=== PATIENT | female | born 1965 | race Caucasian/White ===

== ENCOUNTER 2017-03-07 23:59 | Emergency (ER) | payer OTHER ==
--- NOTE | ~2017-03-07 | CR63 ---
[facility] A Service of [facility] & [facility] RADIOLOGY TEXT RESULTS PATIENT: LOCO DIETZ LOCATION: [facility] : 65 UNIT #: [id number] AGE: [address]: DARÍO DRAPER APRN SEX: F ORDER DR: [id number] [facility] [address]. [place], [place] [address] [id number] E MR#: [id number] Acc #: [id number] NAME: LOCO DIETZ : 1965 SEX: F STUDY DATE/TIME: 03/08/2017 0:47 UNIT: [facility] ROOM: STUDY DESCRIPTION: CR Chest 2 View Attending Physician: Darío Draper Aprn Ordering Physician: Darío Draper Aprn Primary Care Physician: Bon Burnett M.D. MEDICAL IMAGING REPORT This report is preliminary unless electronic signature is present EXAM PA and lateral chest INDICATIONS Cough, left-sided chest pain for 9 days. 03/08 COMPARISON 02/28/2017. FINDINGS A portable view of the chest was obtained. The heart size and vascularity are normal and the lungs are clear and the bones are unremarkable. IMPRESSION No active disease. Dictated by... Tristan Powers M.D. THIS IS AN ELECTRONICALLY VERIFIED REPORT Tristan Powers M.D. at 03/08/2017 5:05 AM JEROD/zan TD: 03/08/2017 02:26 JOB #: [id number] MEDICAL IMAGING REPORT Page 1 of 1 COPY
[~2017-03-07 23:59] MED LIST: ADULT TUSS100 MG/5 M PO; ALBUTEROL 0.5ML INH; ALBUTEROL MININEB NEB; ALBUTEROL17 GM; ALBUTEROL17 GM INH; ALDACTAZIDE PO; ASPIRIN PO; ATROVENT HFA12.9 G1 INH; BACTRIM DS TABL1 TAB PO; BENTYL10 M1 PO; BENZONATATE PO; CAPOZIDE PO; FAMOTIDINE PO; HCTZ PO; HUMIBID-LA600 MG PO; HYDRALAZINE HCL10 MG PO; HYDRALAZINE HCL25 MG PO; HYDROCHLOROTHIA25 MG PO; KEFLEX PO; LEVAQUIN750 M1 PO; LIPITOR PO; LOPRESSOR PO; NORVASC10 MG PO; OMEPRAZOLE40 M1 PO; PHENERGAN PO; PHENTERMINE PO; PREDNISONE PO; PRILOSEC PO; PRILOSEC40 MG PO; PROVENTIL; ROBITUSSIN-DM120 ML PO; SINGULAIR PO; SINGULAIR4 MG PO; TECTURNA PO; TYL325 PO; VENTOLIN5 MG/ML INH; VICODIN 5/500 T1 TAB PO; ZESTORETIC 10/11 TAB PO; ZITHROMAX PO; ZYRTEC10 M1 PO; ZYRTEC10 M2 PO
== END 2017-03-08 03:00 | disposition home or self-care (01) ==
LOC: CED 23:59
DX: J06.9 Acute upper respiratory infection, unspecified (principal); J44.9 Chronic obstructive pulmonary disease, unspecified; K21.9 Gastro-esophageal reflux disease without esophagitis; I10 Essential (primary) hypertension; Z98.51 Tubal ligation status; F17.210 Nicotine dependence, cigarettes, uncomplicated; Z88.0 Allergy status to penicillin; Z91.030 Bee allergy status
CPT/HCPCS: 71020; 94640; 99283

== ENCOUNTER 2017-03-26 06:13 | Emergency (ER) | payer OTHER ==
--- NOTE | ~2017-03-26 | US67 ---
[facility] A Service of [facility] & [facility] RADIOLOGY TEXT RESULTS PATIENT: LOCO DIETZ LOCATION: [facility] : 65 UNIT #: [id number] AGE: [address]: Ron Villa MD SEX: F ORDER DR: [id number] [facility] [address] [place], [place] [address] [id number] E MR#: [id number] Acc #: [id number] NAME: LOCO DIETZ : 1965 SEX: F STUDY DATE/TIME: 03/26/2017 7:23 UNIT: [facility] ROOM: STUDY DESCRIPTION: Gallbladder Attending Physician: Ron Villa M.D. Ordering Physician: Ron Villa M.D. Primary Care Physician: Bon Burnett M.D. MEDICAL IMAGING REPORT This report is preliminary unless electronic signature is present EXAM Gallbladder ultrasound 03/26/2017 HISTORY Gallbladder pain for 4 or 5 hours, hypertension. No relevant surgery history. Real-time ultrasonography of the right upper quadrant performed. COMPARISON: 12/02/2016. FINDINGS Visualized portions of pancreas unremarkable but much of the pancreas is obscured by bowel gas artifact. The liver is normal in contour. Normal echotexture. No focal parenchymal abnormality. Portal vein patent with normal direction of flow. The liver measures about 15.4 cm in craniocaudal extent. Right kidney measures 9.05 cm in greatest length. No hydronephrosis or nephrolithiasis seen. No perinephric fluid collection. No cystic or solid mass lesion suggested. The gallbladder is not pathologically dilated. Measures about 3.6 cm in diameter. Multiple shadowing gallstones as on prior examination. Gallstones are seen in the region of gallbladder neck. There is no intra or extrahepatic biliary ductal dilatation. Common duct measures 4.4 mm in diameter. No pericholecystic fluid. Gallbladder wall measures within normal limits at approximately 2.4 mm. IMPRESSION 1. Multiple shadowing gallstones. No clear sonographic indication of acute cholecystitis. There is no pathologic dilatation of gallbladder. No gallbladder wall thickening or pericholecystic fluid. Note is made of at least 1 gallstone in region of the [facility]. [facility] A Service of [facility] & [facility] RADIOLOGY TEXT RESULTS PATIENT: LOCO DIETZ LOCATION: [facility] : 65 UNIT #: [id number] AGE: [address]: Ron Villa MD SEX: F ORDER DR: gallbladder neck. 2. No biliary ductal dilatation. 3. The liver appears normal. 4. Right kidney normal. 5. Pancreas largely obscured by bowel gas artifact. If there is clinical concern regarding pancreas, it could be further evaluated with CT. Dictated by... Karan Sheldon M.D. THIS IS AN ELECTRONICALLY VERIFIED REPORT Karan Sheldon M.D. at 03/26/2017 3:50 PM Barertt TD: 03/26/2017 09:01 JOB #: [id number] MEDICAL IMAGING REPORT Page 1 of 1 COPY
[2017-03-26 06:48] LABS: URINE SOURCE CLEAN CATCH
[2017-03-26 06:56] LABS: BASOPHIL# 0.1 X10e3 (0-0.3); BASOPHIL% 0.6 % (0-2.5); EOSINOPHIL# 0.4 X10e3 (0-0.7); EOSINOPHIL% 4.1 % (0.0-7.0); HEMATOCRIT 42.6 % (35.0-45.0); LYMPHOCYTE# 1.9 X10e3 (1.0-3.5); LYMPHOCYTE% 20.3 % (17.0-45.0); MEAN CELL VOLUME 80.8 FL (83-96); MEAN CORPUSCULAR HEMOGLOBIN 26.6 PG (28-34); MEAN CORPUSCULAR HGB CONC 32.9 g/dL (30-36); MEAN PLATELET VOLUME 8.5 FL (6.5-11.5); MONOCYTE# 0.6 X10e3 (0-1.0); MONOCYTE% 6.8 % (3.0-12.0); NEUTROPHIL# 6.2 X10e3 (1.5-7.1); NEUTROPHIL% 68.2 % (40-75); PLATELET COUNT 275 X10e3 (140-420); RED BLOOD COUNT 5.28 X10e (3.90-5.30); RED CELL DISTRIBUTION WIDTH 15.2 % (11.0-15.5); WHITE BLOOD COUNT 9.1 X10e3 (4.0-10.5)
[2017-03-26 06:57] LABS: URINE APPEARANCE CLOUDY; URINE BILIRUBIN NEG (NEG); URINE BLOOD NEG (NEG); URINE COLOR YELLOW; URINE GLUCOSE NEG (NEG); URINE KETONE NEG (NEG); URINE LEUKOCYTE ESTERASE NEG (NEG); URINE NITRATE NEG (NEG); URINE PH 6.5 (5-8); URINE PROTEIN NEG (NEG); URINE SPECIFIC GRAVITY 1.016 (1.003-1.035)
[2017-03-26 06:59] LABS: DIFF IND NO
[2017-03-26 07:01] LABS: CULTURE INDICATED? NO
[2017-03-26 07:24] LABS: ALBUMIN SERUM 3.6 g/dL (3.5-5.0); BILIRUBIN, DIRECT 0.1 mg/dL (0.0-0.2); BILIRUBIN,INDIRECT 0.3 mg/dL (0.0-0.9); BILIRUBIN,TOTAL 0.4 mg/dL (0.2-2.0); BUN/CREATININE RATIO 21.25; CALCIUM SERUM 9.1 mg/dL (8.4-10.2); CREATININE SERUM 0.8 mg/dL (0.6-1.4); GLOM FILT RATE Estimated 85.4 mL/min (>60); PROTEIN TOTAL SERUM 6.7 g/dL (6.0-8.3)
== END 2017-03-26 09:01 | disposition home or self-care (01) ==
LOC: CED 06:13
PROVIDERS: Emergency Medicine
DX: K80.50 Calculus of bile duct without cholangitis or cholecystitis without obstruction (principal); Z88.0 Allergy status to penicillin; Z88.8 Allergy status to other drugs, medicaments and biological substances; Z88.5 Allergy status to narcotic agent; Z91.030 Bee allergy status; Z79.899 Other long term (current) drug therapy
CPT/HCPCS: 36415; 76705; 80048; 80076; 81003; 83690; 85025; 96361; 96374; 96375; 99284; J1170; J2405

== ENCOUNTER 2017-04-04 14:15 | Emergency (ER) | payer OTHER ==
[2017-04-04 15:19] LABS: BASOPHIL# 0.1 X10e3 (0-0.3); BASOPHIL% 0.9 % (0-2.5); EOSINOPHIL# 0.2 X10e3 (0-0.7); HEMATOCRIT 46.1 % (35.0-45.0); HEMOGLOBIN 14.9 gm/dL (12.0-16.0); LYMPHOCYTE# 1.7 X10e3 (1.0-3.5); LYMPHOCYTE% 16.9 % (17.0-45.0); MEAN CELL VOLUME 80.8 FL (83-96); MEAN CORPUSCULAR HEMOGLOBIN 26.1 PG (28-34); MEAN CORPUSCULAR HGB CONC 32.3 g/dL (30-36); MEAN PLATELET VOLUME 8.8 FL (6.5-11.5); MONOCYTE# 0.6 X10e3 (0-1.0); MONOCYTE% 6.2 % (3.0-12.0); NEUTROPHIL# 7.3 X10e3 (1.5-7.1); PLATELET COUNT 290 X10e3 (140-420); RED CELL DISTRIBUTION WIDTH 15.9 % (11.0-15.5); WHITE BLOOD COUNT 9.9 X10e3 (4.0-10.5)
[2017-04-04 15:24] LABS: DIFF IND NO
[2017-04-04 15:42] LABS: ALBUMIN SERUM 3.9 g/dL (3.5-5.0); BILIRUBIN,TOTAL 0.4 mg/dL (0.2-2.0); BUN/CREATININE RATIO 8.88; CALCIUM SERUM 9.5 mg/dL (8.4-10.2); CREATININE SERUM 0.9 mg/dL (0.6-1.4); GLOM FILT RATE Estimated 74.1 mL/min (>60); POTASSIUM 3.8 mmol/L (3.5-5.1)
== END 2017-04-04 15:55 | disposition left against medical advice (07) ==
LOC: CED 14:15
PROVIDERS: Emergency Medicine
DX: Z53.21 Procedure and treatment not carried out due to patient leaving prior to being seen by health care provider (principal)
CPT/HCPCS: 80053; 85025

== ENCOUNTER 2017-05-23 15:24 | Emergency (ER) | payer OTHER ==
--- NOTE | ~2017-05-23 | CR72 ---
[facility] A Service of [facility] RADIOLOGY TEXT RESULTS PATIENT: LOCO DIETZ LOCATION: [facility] : 65 UNIT #: [id number] AGE: [address]: Merari Esteban MD SEX: F ORDER DR: [id number] [facility] [address] [place], [place] [address] [id number] E MR#: [id number] Acc #: [id number] NAME: LOCO DIETZ : 1965 SEX: F STUDY DATE/TIME: 05/23/2017 18:39 UNIT: [facility] ROOM: STUDY DESCRIPTION: CR Chest Single View Portable Attending Physician: Merari Esteban M.D. Ordering Physician: Merari Esteban M.D. Primary Care Physician: Bon Burnett M.D. MEDICAL IMAGING REPORT This report is preliminary unless electronic signature is present EXAM Frontal chest, 05/23/2017. INDICATIONS 51-year-old female with shortness of air, feels like food getting stuck in the throat symptoms 5 days. Hypertension. COPD, tobacco abuse 30 years. TECHNIQUE Frontal chest was performed. COMPARISONS 03/08/2017 FINDINGS Cardiac silhouette is within normal limits. The vascularity is normal. Chronic interstitial changes are present in both lungs with probable fibrosis and scarring in the lung bases similar to the prior examination. No pneumothorax. IMPRESSION 1. Pulmonary hyperinflation and chronic lung changes. No significant change. Dictated by... Juan Carlos Cross M.D. THIS IS AN ELECTRONICALLY VERIFIED REPORT Juan Carlos Cross M.D. at 05/23/2017 11:50 PM Carlos TD: 05/23/2017 22:26 JOB #: [id number] [facility] A Service [facility] RADIOLOGY TEXT RESULTS PATIENT: LOCO DIETZ LOCATION: [facility] : 65 UNIT #: [id number] AGE: [address]: Merari Esteban MD SEX: F ORDER DR: MEDICAL IMAGING REPORT Page 1 of 1 COPY
[2017-05-23 17:57] LABS: BASOPHIL# 0.1 X10e3 (0-0.3); EOSINOPHIL# 0.1 X10e3 (0-0.7); EOSINOPHIL% 1.8 % (0.0-7.0); HEMATOCRIT 45.2 % (35.0-45.0); HEMOGLOBIN 14.7 gm/dL (12.0-16.0); LYMPHOCYTE# 1.9 X10e3 (1.0-3.5); LYMPHOCYTE% 23.9 % (17.0-45.0); MEAN CORPUSCULAR HEMOGLOBIN 26.3 PG (28-34); MEAN CORPUSCULAR HGB CONC 32.4 g/dL (30-36); MONOCYTE# 0.6 X10e3 (0-1.0); MONOCYTE% 7.9 % (3.0-12.0); NEUTROPHIL# 5.3 X10e3 (1.5-7.1); NEUTROPHIL% 65.4 % (40-75); PLATELET COUNT 241 X10e3 (140-420); RED BLOOD COUNT 5.58 X10e (3.90-5.30); RED CELL DISTRIBUTION WIDTH 16.4 % (11.0-15.5); WHITE BLOOD COUNT 8.1 X10e3 (4.0-10.5)
[2017-05-23 17:59] LABS: DIFF IND NO
[2017-05-23 18:17] LABS: ALBUMIN SERUM 3.9 g/dL (3.5-5.0); ALKALINE PHOSPHATASE 91 U/L (32-92); ALT (SGPT) 8 U/L (10-40); AST (SGOT) 14 U/L (10-42); BILIRUBIN,TOTAL 0.5 mg/dL (0.2-2.0); BLOOD UREA NITROGEN 7 mg/dL (9-23); BUN/CREATININE RATIO 8.75; CARBON DIOXIDE 28 mmol/L (22-31); CHLORIDE 104 mmol/L (100-111); CREATININE SERUM 0.8 mg/dL (0.6-1.4); GLOM FILT RATE Estimated 85.4 mL/min (>60); GLUCOSE FASTING 77 mg/dL (70-110); LIPASE 18 U/L (22-51); POTASSIUM 3.9 mmol/L (3.5-5.1); SODIUM 138 mmol/L (135-145)
[2017-05-23 18:18] LABS: BILIRUBIN, DIRECT <0.1 mg/dL (0.0-0.2); BILIRUBIN,INDIRECT 0.4 mg/dL (0.0-0.9)
[2017-05-23 18:36] LABS: URINE SOURCE CLEAN CATCH
[2017-05-23 18:42] LABS: URINE APPEARANCE CLEAR; URINE BILIRUBIN NEG (NEG); URINE BLOOD NEG (NEG); URINE COLOR YELLOW; URINE GLUCOSE NEG (NEG); URINE KETONE NEG (NEG); URINE LEUKOCYTE ESTERASE NEG (NEG); URINE NITRATE NEG (NEG); URINE PH 6.5 (5-8); URINE PROTEIN NEG (NEG); URINE SPECIFIC GRAVITY 1.007 (1.003-1.035); URINE UROBILINOGEN 0.2 MG/DL (NEG)
[2017-05-23 18:46] LABS: CULTURE INDICATED? NO
== END 2017-05-23 20:10 | disposition home or self-care (01) ==
LOC: CED 15:24
DX: K21.9 Gastro-esophageal reflux disease without esophagitis (principal); K22.2 Esophageal obstruction; I10 Essential (primary) hypertension; J44.9 Chronic obstructive pulmonary disease, unspecified; F17.210 Nicotine dependence, cigarettes, uncomplicated; Z98.51 Tubal ligation status; Z88.0 Allergy status to penicillin; Z88.8 Allergy status to other drugs, medicaments and biological substances; Z91.030 Bee allergy status
CPT/HCPCS: 36415; 71010; 80048; 80076; 81003; 83690; 85025; 99284; J0500

== ENCOUNTER 2017-06-26 18:48 | Observation (INO) | payer OTHER ==
[~2017-06-26] VITALS: Ht 160 cm; Wt 66.3 kg
--- NOTE | ~2017-06-26 | DS ---
Unit #: [id number] #: [id number] Patient: LOCO DIETZ [id number] [address] [place], [place] [address] [id number] I MR#: [id number] NAME: LOCO DIETZ ROOM: 556 Age: 51 Sex: F Admission Date: 06/27/2017 : 1965 Discharge Date: 06/29/2017 Attending Physician: Talita Turner M.D. Primary Care Physician: Broderick Neal M.D. DISCHARGE SUMMARY PRINCIPAL DISCHARGE DIAGNOSES 1. Atypical chest pain with negative Cardiolite. 2. Dysphagia. 3. Chronic obstructive pulmonary disease. 4. Tobacco use. 5. Hypertension. PROCEDURES EGD with biopsy and dilation on 06/28/17. CONSULTANTS 1. Dr. Tommy Bennett. 2. [facility]. REASON FOR HOSPITALIZATION The patient is a 51-year-old white female, with history of COPD, hypertension, GE reflux disease, history of esophageal stricture and dilation, admitted with nausea, vomiting, weight loss, dysphagia and anterior chest pain. In the ER she was afebrile. Vital signs were stable. Room air O2 sat was 98%. CBC was normal. BMP was normal. Urinalysis normal. Cardiac enzymes normal. D-dimer 271. The patient was admitted. HOSPITAL COURSE The patient was admitted. Cardiology was consulted. She was placed on a telemetry bed. GI was consulted, as well. IV Protonix was started. The patient underwent stress Cardiolite on the , which was within normal limits. She then underwent EGD the following day with findings showing duodenitis, gastritis, hiatal hernia. Biopsies were obtained, esophagus was dilated. The patient is having no further chest pain. No trouble swallowing. Okay to be discharged by cardiology and GI. Patient on omeprazole at home, which will be resumed. She is on a regular diet. MEDICATIONS 1. Ventolin inhaler p.r.n. 2. Zyrtec 10 mg daily. 3. Norvasc 10 mg daily. 4. Singulair 10 mg daily. 5. Lorcet 5/325 t.i.d. p.r.n. pain. 6. Omeprazole 40 mg daily. FOLLOW-UP She is to follow up with Dr. Burnett in 1 week. Unit #: [id number] #: [id number] Patient: LOCO DIETZ Dictated by... Migue Easley/olivia TD: 07/01/2017 10:11 JOB #: [id number] DISCHARGE SUMMARY Page 1 of 1 X Jaret Russo MD X DISCHARGE SUMMARY
--- NOTE | ~2017-06-26 | TH ---
Unit #: [id number] #: [id number] Patient: LOCO DIETZ [id number] [facility]. [place], [place] [address] [id number] I MR#: [id number] NAME: LOCO DIETZ : 1965 SEX: F STUDY DATE/TIME: 06/27/2017 UNIT: [id number] ROOM: 556 STUDY DESCRIPTION: NUCLEAR STUDY Attending Physician: Talita Turner M.D. Primary Care Physician: Broderick Neal M.D. CARDIOLOGY REPORT INDICATION Chest pain. SUMMARY The patient exercised under Jon protocol to maximal effort. Heart rate increased from 81 to 146. The rest and stress ECG demonstrated no diagnostic ST shifts but there was 0.[address] depression in leads 2, 3, AVF at rest. The patient completed two stage of the Jon protocol, then modified stage 3 and stage 4 for approximately 2.5 minutes today. A total of 8 minutes and 30 seconds was spent on the treadmill. There was no chest pain or chest tightness, and there was no shoulder pain but there was typical shortness of breath. Technetium 99 Cardiolite 11.28 and 31.0 mCi was injected at rest and stress respectively. Perfusion images demonstrated intestinal artifact mainly at rest, less with stress. There is breast attenuation artifact both at rest and stress, but otherwise normal perfusion throughout the myocardium at both rest and stress. Gated perfusion wall motion analysis demonstrates normal wall motion throughout the myocardium. Summed stress score is 3. Summed difference score is 3, mainly related to border detection at the base. End-diastolic volume 75 mL, ejection fraction is greater than 65% IMPRESSION 1. Normal study with no evidence of ischemia or infarction. Moderate deconditioning based on the patient's age. 2. Normal heart rate and blood pressure responses. No change in therapy. Dictated by... Augie Eastman M.D. FLORIDALMA/zach TD: 06/28/2017 07:56 JOB #: [id number] Unit #: [id number] #: [id number] Patient: LOCO DIETZ CARDIOLOGY REPORT Page 1 of 1 X Augie Eastman MD CARDIOLOGY REPORT
--- NOTE | ~2017-06-26 | EKG ---
PATIENT: LOCO DIETZ UNIT #: [id number] Ventricular Rate: 75 BPM Atrial Rate: 75 BPM P-R Interval: 130 ms QRS Duration: 90 ms Q-T Interval: 378 ms QTC Calculation(Bezet): 422 ms P Gentry: 66 degrees Calculated R Gentry: 57 degrees Calculated T Gentry: 43 degrees Diagnosis Line: Normal sinus rhythm Diagnosis Line: Normal ECG Diagnosis Line: No previous ECGs available Diagnosis Line: Confirmed by SALUD KNUTSON MD ([id number]) on 06/27/2017 Diagnosis Line: 7:17:27 PM INTERPRETING MD: EAMON PICKERING
--- NOTE | ~2017-06-26 | A ---
[facility] Nutrition Therapy DATE: 06/28/17 Patient: LOCO DIETZ Physician: ERENDIRA Address: [address] [place] [address] Room/Bed: [address] [place] [address], Zip: [place] [address] Admit Date: 06/27/17 Date of : [birth year] Height: 5 3 Weight: 147 66.9 NUTRITIONAL ASSESSMENT: REASON: PT SEEN FOR DX PT IS 51 Y.O. FEMALE ADMITTED FOR DYSPHAGIA, CP PMH: HTN, ASTHMA, COPD, GERD, DYSPHAGIA, HLD, BRONCHITIS, HX OF ESOPHAGEAL STRICTURES W/DILATION Anthropometrics: 5'3", WT: 146# (66 KG), BMI: 25.9 Labs: BUN: 8, ALB: 3.3, AST: 9, ALT: 7, LDL: 144 Meds: PROTONIX, D5%, NACL I/O & Bowel function: 975/800 Skin Integrity: NO KNOWN SKIN ISSUES Estimated Nutrition Needs: INCREASED NEEDS 2' DECREASED PO INTAKE, WEIGHT LOSS NOTED Assessment: CHART REVIEWED AND EVENTS NOTED. PT SEEN FOR DX. PT REPORTS DECREASED PO INTAKE AND APPETITE PAST 3-4 MONTHS D/T DIFFICULTY SWALLOWING SOLIDS, PT ADDS "FOOD GETS STUCK", ALSO NOTING N/V/D. PT REPORTS LOSING WEIGHT PAST YEAR/NOTES UBW IS ~189#-40# SEVERE WEIGHT LOSS NOTED. PT ADDS LOSING ~20# PAST 3 MONTHS S/P GALLBADDER REMOVAL. PT CURRENTLY NPO 2' EGD PROCEDURE TODAY. PLANS IN PLACE TO ADVANCE DIET TOLERATED TO REGULAR. THIS RD ENCOURAGED SLOW GRADUAL PO INTAKE ONCE DIET ADVANCES + SMALL FREQUENT MEALS, PT AGREED AND WILLING TO DRINK ENSURE SHAKES ONCE DIET ADVANCES (PT DRANK BOOST SHAKES AT HOME). PT REPORTED NO DIET QUESTIONS AT THIS TIME. RD TO FOLLOW. SEE RECOMMENDATIONS BELOW. Dx: UNINTENTIONAL WEIGHT LOSS R/T DYSPHAGIA NOTED, DECREASED PO INTAKE AEB PT REPORT ABOVE, ~20# WEIGHT LOSS NOTED IN PAST 3 MONTHS & 40# TOTAL WEIGHT LOSS PAST YEAR. Intervention: 1. NPO Monitoring, Evaluation and Goals: 1. ORAL INTAKE; ADVANCE DIET AND CONSUME/TOLERATE >50% OF MEALS 2. WEIGHTS; PREVENT FURTHER WEIGHT LOSS 3. LABS; WNL MONITOR: [facility] Nutrition Therapy DATE: 06/28/17 Patient: LOCO DIETZ Physician: ERENDIRA Address: [address] [place] [address] Room/Bed: [address] [place] [address], Zip: [place] [address] Admit Date: 06/27/17 Date of : [birth year] Height: 5 3 Weight: 147 66.9 -DIET ADVANCEMENT -PO INTAKE/APPETITE -WEIGHTS -SUPPLEMENT INTAKE Recommendations: 1. ONCE MEDICALLY FEASIBLE, BEGIN WITH CLEARS AND ADVANCE DIET TOLERATED TO REGULAR TO BETTER FACILITATE PO INTAKE 2. PLEASE ORDER ENSURE SHAKES (MILLY) TID W/MEALS, ONCE DIET ADVANCES FOR ADDITIONAL PROTEIN, KCAL AND FLUID 3. APPRECIATE FAMILY AND STAFF TO ENCOURAGE SLOW GRADUAL PO INTAKE RD WILL F/U PER PROTOCOL PT IS MODERATELY COMPROMISED Respectfully, TIFF WESTBROOK MS, RD, LD Food and Nutritional Services [facility] cc: client file
--- NOTE | ~2017-06-26 | EKG ---
PATIENT: LOCO DIETZ UNIT #: [id number] Ventricular Rate: 72 BPM Atrial Rate: 72 BPM P-R Interval: 130 ms QRS Duration: 90 ms Q-T Interval: 388 ms QTC Calculation(Bezet): 424 ms P Basile: 56 degrees Calculated R Basile: 40 degrees Calculated T Basile: 42 degrees Diagnosis Line: Normal sinus rhythm Diagnosis Line: Normal ECG Diagnosis Line: When compared with ECG of 27-JUN-2017 01:47, Diagnosis Line: (unconfirmed) Diagnosis Line: No significant change was found Diagnosis Line: Confirmed by SALUD KNUTSON MD ([id number]) on 06/27/2017 Diagnosis Line: 7:20:13 PM INTERPRETING MD: EAMON PICKERING
--- NOTE | ~2017-06-26 | HP ---
Unit #: [id number] #: [id number] Patient: LOCO DIETZ [id number] [address] [place], [place] [address] [id number] I MR#: [id number] NAME: LOCO DIETZ ROOM: 556 Age: 51 Sex: F Admission Date: 06/27/2017 : 1965 Attending Physician: Talita Turner M.D. Primary Care Physician: Broderick Neal M.D. HISTORY AND PHYSICAL CHIEF COMPLAINT Chest pain, vomiting. HISTORY OF PRESENT ILLNESS 51-year-old female who has history of COPD, hypertension, GERD, history of esophageal stricture, came in with the complaint of chest pain. The patient complaints of chest pain in the middle, more towards the epigastria area. There is no radiation of pain to the neck or the left upper extremity, which she does not complain of shortness of breath. She does not complaining of sweating. She does complain of vomiting. She has been vomiting for the last three months, almost on a daily basis. She cannot tolerate solids. She has been drinking only liquids and also some semi-solid food like mash potatoes and applesauce. She feel hungry. She does have good appetite but she cannot eat. She has not follow up with Dr. Tommy Bennett because she has been going through a lot of stress at home. She has lost significant weight. The patient has lost almost 20 pounds in the last four months or so. Patient does complain of diarrhea alternating with constipation. She does complain of some dizziness, especially when bends down. No complaint of syncopal episode. No complaint of abdominal pain except in the upper abdomen in the epigastric area. PAST MEDICAL HISTORY 1. COPD. 2. Hypertension. 3. GERD. 4. Allergic rhinitis. 5. History of esophageal stenosis. ALLERGIES Patient is allergic to metoprolol, lisinopril, and penicillin. SOCIAL HISTORY The patient is a smoker, smokes 1 1/2 packs per day. No history of alcohol abuse and drug abuse. FAMILY HISTORY Significant coronary artery disease in father and mother has history of hypertension. HOME MEDICATIONS Singulair 10 mg daily; Norvasc 10 mg daily; Zyrtec 10 mg daily; omeprazole 40 mg daily; Lorcet 5/325 mg 3 times a day p.r.n. Unit #: [id number] #: [id number] Patient: LOCO DIETZ REVIEW OF SYMPTOM As per history of presenting illness. PHYSICAL EXAMINATION GENERAL: The patient is sitting in the bed, no respiratory distress. VITAL SIGNS: Blood pressure is 117/89, respiratory rate 20, pulse 89, temperature 98.1, oxygen saturation is 98%. HEENT: Head is normocephalic. Eye movements are normal. NECK: Supple. CHEST: Fair air entry. Some wheezing is heard. CVS: S1 and S2 positive. Regular rhythm. ABDOMEN: Upper epigastric tenderness is present, otherwise abdomen is soft. EXTREMITIES: Negative edema. TIN ROOFER: Patient is awake, alert and oriented x3. No focal neurological deficit. DIAGNOSTIC STUDIES LABORATORY STUDIES: WBC 8.9, hemoglobin 15.0, hematocrit 45.9, and platelet count 249. Sodium 143, potassium 3.7, chloride 106, BUN 10, creatinine 0.8, liver enzymes are stable. Urinalysis is normal. Troponin is less than 0.05. D-dimer is 271. Potassium today is 3.4. ASSESSMENT AND PLAN Patient is being admitted to telemetry unit with diagnosis of: 1. Atypical chest pain, rule out myocardial infarction and coronary artery disease. 2. Persistent vomiting. 3. Dysphagia. 4. Weight loss. 5. COPD. 6. Tobacco abuse. 7. Hypertension. PLAN 1. Admit to telemetry unit. 2. Cardiology has been consulted. 3. Patient is being scheduled for stress test as she does have a lot of risk factors. Dr. Tommy Bennett is being consulted. 4. The patient is NPO at this time. 5. IV fluids are being started. 6. IV Protonix is being started. 7. Patient may need EGD for possible dilatation. 8. Plan of care has been discussed with patient. 9. Tobacco cessation counseling done. Dictated by Migue Abbott TD: 06/27/2017 11:19 JOB #: [id number] Unit #: [id number] #: [id number] Patient: LOCO DIETZ HISTORY AND PHYSICAL Page 1 of 1 X Talita Turner MD HISTORY AND PHYSICAL
--- NOTE | ~2017-06-26 | OR ---
Unit #: [id number] #: [id number] Patient: LOCO DIETZ [id number] [facility]. [place], [place] [address] [id number] I MR#: [id number] NAME: LOCO DIETZ ROOM: [facility] Date of Procedure: 06/28/2017 Admission Date: 06/27/2017 Surgeon: Tommy Bennett M.D. : 1965 Attending Physician: Talita Turner M.D. Primary Care Physician: Broderick Neal M.D. OPERATIVE REPORT PRIMARY CARE PHYSICIAN Bon Burnett M.D. REASON FOR CONSULTATION Dysphagia. PROCEDURES PERFORMED Upper gastrointestinal endoscopy and biopsy as well as upper gastrointestinal endoscopy and dilation. POSTOPERATIVE DIAGNOSES 1. The patient had evidence of moderate prepyloric antral gastritis. 2. There was also moderate focal patchy erosive duodenitis. 3. Hiatus hernia. 4. Distal esophageal ring. Although the latter was felt to be wide open, it was dilated using a 60-Amharic Vo dilator. In addition, biopsies obtained from the antrum for CLOtest. RECOMMENDATIONS We will follow the patient tomorrow to see if the empiric dilation has helped. It is noteworthy that the patient had no stricture, mucosal ring, or any stenosis of esophagus. SEDATION USED MAC. DESCRIPTION OF PROCEDURE Following detailed explanation of the potential risks and complications of an upper endoscopy, namely perforation, bleeding, and complications related to sedation, the patient was brought to GI lab and laid in the left lateral decubitus position. Lubricated tip of the Olympus video upper endoscope was passed through the oral cavity to the oropharynx into the esophagus. Entire esophageal mucosa was examined. The patient was noted to have a hiatus hernia distally. In addition, there was presence of a distal esophageal ring. The latter was felt to be wide open. The scope was then advanced into the gastric cavity and the latter was insufflated. Mucosa of the fundus, body, and antrum was examined and moderate prepyloric antral erosive gastritis noted. The latter was in the form of erosions and erythema. The scope was then advanced. The pylorus was intubated with visualization of the duodenal bulb. The latter was noted to have focal patchy erosive duodenitis. Second and third part of duodenum were normal. Upon withdrawal and retroflexion, incisura, cardia, Unit #: [id number] #: [id number] Patient: JUST,LOCO and greater curve examined and biopsy obtained from the antrum for CLOtest. The scope was then withdrawn in the distal esophagus. The entire esophageal mucosa was examined all the way up to pharynx. No additional findings noted. A 60-Amharic Vo dilator was introduced through the oral cavity and advanced into the esophagus. Relook endoscopy did not show any bleeding indicating the patient had wide open esophagus to start with. The scope was withdrawn. The patient returned to the recovery area. She tolerated the procedure without any postprocedure complications. Dictated by... Migue Chance/shanda TD: 06/30/2017 04:52 JOB #: [id number] Bon Burnett M.D. OPERATIVE REPORT Page 1 of 1 X Tommy Bennett MD X PROCEDURE OPERATIVE NOTE
--- NOTE | ~2017-06-26 | CO ---
Unit #: [id number] #: [id number] Patient: LOCO CHAVEZ [id number] [facility]. [place], [place] [address] [id number] I MR#: [id number] NAME: LOCO CHAVEZ ROOM: 556 Age: 51 Sex: F Admission Date: 06/27/2017 : 1965 Attending Physician: Talita Turner M.D. Primary Care Physician: Broderick Neal M.D. CONSULTATION REPORT ADDITIONAL ATTENDING PHYSICIAN Francoise Choudhury M.D. and Rimma Sanchez M.D. REASON FOR CONSULTATION Dysphagia. HISTORY OF PRESENT ILLNESS Ms. Chavez is a 51-year-old white female, who is known to me. The patient presented with history of dysphagia to solids for the past several months. She says she had dilation in the past, which helped, but subsequently symptoms came back over the past few months. She has lost about 15 pounds in the interim over the past year. The patient ended up coming to the hospital with chest pain and vomiting and is undergoing cardiac evaluation to look for any reversible ischemia. She has mostly problem with solids on swallowing. There are no problems with liquids. PAST MEDICAL HISTORY Significant for history of hypertension, GERD, COPD, allergic rhinitis, history of esophageal strictures. PAST SURGICAL HISTORY None. HOME MEDICATIONS Include Singulair, Norvasc, Zyrtec, omeprazole, Lorcet. ALLERGIES Allergic to metoprolol, lisinopril, and penicillin. FAMILY HISTORY Coronary artery disease in the father and history of hypertension. SOCIAL HISTORY Smokes 1-1/2 pack of cigarette per day. Does not drink alcohol. REVIEW OF SYSTEMS Detailed review of organ systems is significant for weight loss about 15 to 20 pounds over the past year. There is no history of fever, chills, or rigors. No history of headache, seizures, or syncope. No history of cough, expectoration, or hemoptysis. No history of dysuria, hematuria, or pyuria. No history of focal seizures or extremity weakness. Rest of the review of systems is unremarkable. PHYSICAL EXAMINATION Unit #: [id number] #: [id number] Patient: LOCO CHAVEZ GENERAL: She is awake, alert, and oriented, appears comfortable. VITAL SIGNS: Stable with a temperature of 98.5, pulse is 87 per minute and regular, respiratory rate is 16, blood pressure blood pressure is 138/81. HEENT: She has no pallor, icterus, lymphadenopathy, or peripheral edema. CARDIOVASCULAR: Normal heart sounds. No murmurs. LUNGS: Auscultation over the lungs with normal breath sounds. Good air entry. ABDOMEN: Soft and nontender. Liver and spleen are not palpable. Bowel sounds normal. DIAGNOSTIC STUDIES LABORATORY RESULTS: Shows a hemoglobin of 15, normal white count and platelet count. Serum chemistry shows normal BUN, creatinine, and potassium 3.4. Albumin is 3.3. Cardiac enzymes are normal. CLINICAL IMPRESSION It is likely that her symptomatology due to recurrent esophageal stricture. An upper endoscopy and dilation is indicated be scheduled for tomorrow. The pros and cons of the procedure, potential risks, and complications were discussed with the patient, she was reassured. Thank you for asking me to see this pleasant woman. I appreciate the consult. Dictated by... Tommy Bennett M.D. KATHE/shanda TD: 06/27/2017 17:32 JOB #: [id number] Bon Burnett M.D. Francoise Choudhury M.D. CONSULTATION REPORT Page 1 of 1 X Tommy Bennett MD X CONSULTATION REPORT
--- NOTE | ~2017-06-26 | CO ---
Unit #: [id number] #: [id number] Patient: LOCO DIETZ [id number] [place], [place] [address] [id number] I MR#: [id number] NAME: LOCO DIETZ ROOM: 6 Age: 51 Sex: F Admission Date: 06/27/2017 : 1965 Attending Physician: Talita Turner M.D. Primary Care Physician: Broderick Neal M.D. Consultation Date: 06/27/2017 CONSULTATION REPORT REASON FOR CONSULTATION Chest pain. HISTORY OF PRESENT ILLNESS This is a pleasant 51-year-old female with a past medical history of hypertension, hyperlipidemia, COPD, GERD with history of esophageal strictures and dilations in the past, tobacco abuse, as well as a family history of premature coronary artery disease in her father. She presented to the emergency room with complaints of pain bilaterally around the breast area and below. She also reports some pain after eating in her right shoulder. The patient reports to me she has issues with inability to keep her foods down, this has been going on since her gallbladder removed approximately 3 months ago. She does report daily nausea with episodes of vomiting and says she is just not eating well. There was some question of dysphagia and the patient states she is unable to eat steak as she feels as though it gets stuck and she has been drinking some boost for nutritional value. She does also report she has lost about 20 pounds over the last 3 months unintentionally since her gallbladder was removed. The patient does have complaints of shortness of air with exertion, however, she attributes this to her COPD. She reports recently though she has noticed an increase in fatigue and states that she does have some pain in her right shoulder with exertion when she is walking fast or chasing after her grandchildren. EKG was reviewed and it shows normal sinus rhythm, rate of 72 beats per minute. No acute ischemic changes seen. Poor R-wave progression. QTc interval 424 msec. Initial cardiac enzymes have been negative. PAST MEDICAL HISTORY 1. Hypertension. 2. GERD. 3. COPD. 4. Hyperlipidemia. 5. History of esophageal stricturing with dilations. 6. The patient did have a stress Cardiolite in 12/2013 that was reportedly normal. 7. 2D echocardiogram was done in 03/2012, which showed an LVEF of 60% to 65%. No significant valvular abnormalities. PAST SURGICAL HISTORY 1. C-sections x3. 2. Esophageal stricture with dilations. Unit #: [id number] #: [id number] Patient: LOCO DIETZ ALLERGIES Penicillin, lisinopril, and metoprolol. HOME MEDICATIONS Singulair 10 mg p.o. daily, Norvasc 10 mg p.o. daily, Zyrtec 10 mg p.o. daily, omeprazole 40 mg p.o. daily, Lorcet 5/325 t.i.d. p.r.n. pain. SOCIAL HISTORY The patient smokes, she reports about a pack and a half per day for 30 years. She denies illicit drugs or alcohol. She reports she recently got custody of her grandchildren and she is taking care of them. FAMILY HISTORY Positive for MA in her father, who in his 50s and hypertension in her mother. REVIEW OF SYSTEMS CONSTITUTIONAL: Positive for recent weight loss. HEENT: No blurred vision. No hearing difficulties. Questionable dysphagia. PULMONARY: Positive for COPD, shortness of air with exertion. CARDIOVASCULAR: Atypical chest pains. GI: Complaint of nausea and vomiting. Denies melena or hematochezia. MUSCULOSKELETAL: Normal ambulation. Denies myalgias. ENDOCRINE: Denies diabetes, thyroid, or adrenal abnormalities. HEMATOLOGIC: Denies bleeding or easy bruising. PHYSICAL EXAMINATION GENERAL: This is a pleasant 51-year-old female, who appears much older than her stated age. She is in no acute distress. HEENT: Head is atraumatic and normocephalic. Pupils are equal and round. Mucous membranes are dry. NECK: Supple. No JVD, bruits, or lymphadenopathy. Carotid upstrokes are normal. CHEST: Clear to auscultation. Diminished in the bases. ABDOMEN: Soft, nontender, nondistended. Bowel sounds are present. EXTREMITIES: Pulses are palpable, but weak. No clubbing, cyanosis, or edema is noted. NEUROLOGIC: She is awake, alert, and oriented. She follows commands. She moves all extremities equally. DIAGNOSTIC STUDIES CARDIOVASCULAR STUDIES: EKG shows normal sinus rhythm, rate of [address] No [address]-T wave abnormalities noted. QTc interval 424 msec. LABORATORY RESULTS: Sodium 142, potassium 3.4, chloride 112, CO2 is 25, BUN 9, creatinine 0.8, glucose 89. Hemoglobin 15.0, hematocrit 45.9, WBCs 8.9, platelet count 241. Troponins have been negative x2. IMPRESSION AND PLAN 1. Atypical chest pain. 2. Nausea and vomiting with weight loss approximately 20 pounds since cholecystectomy 3 months ago. 3. Chronic obstructive pulmonary disease. 4. Dysphagia with a history of gastroesophageal reflux disease and esophageal dilations. 5. Hypertension. 6. Hyperlipidemia. Unit #: [id number] #: [id number] Patient: LOCO DIETZ 7. Premature coronary artery disease in her family in her father. 8. Tobacco abuse. PLAN The patient's symptoms do appear atypical for ischemic pain, however, she does have significant risk factors for coronary artery disease which include the following, hypertension, hyperlipidemia, tobacco abuse, and a family history of premature coronary artery disease; therefore, we would recommend proceeding with ischemic evaluation. This has been explained to the patient and she is agreeable. There are no signs and symptoms of fluid overload. Her last echo showed a normal systolic ejection fraction, but no valvular abnormalities in 2011, but do not feel like there is a reason to repeat that at this time. We will proceed with exercise Cardiolite today, add a lipid panel to the blood in lab, check TSH, and resume her Norvasc 10 mg p.o. daily. GI will be seeing the patient for evaluation of her dysphagia, persistent nausea, vomiting, and weight loss. Further recommendations pending Dr. Eastman's assessment. Dictated by... Tamar Ventura A.P.R.N. LMW/modl TD: 06/28/2017 06:14 JOB #: [id number] CONSULTATION REPORT Page 1 of 1 X Tamar Ventura APRN X CONSULTATION REPORT
--- NOTE | ~2017-06-26 | CR72 ---
[facility] A Service of [facility] RADIOLOGY TEXT RESULTS PATIENT: LOCO DIETZ LOCATION: [place] [address] : [birth year] UNIT #: [id number] AGE: [address]: Talita Turner MD SEX: F ORDER DR: [id number] [facility] [address] [place], [place] [address] [id number] I MR#: [id number] Acc #: [id number] NAME: LOCO DIETZ : 1965 SEX: F STUDY DATE/TIME: 06/26/2017 22:50 UNIT: [facility] ROOM: [facility] STUDY DESCRIPTION: CR Chest Single View Portable Attending Physician: Talita Turner M.D. Ordering Physician: Pierre Duval D.O. Primary Care Physician: Broderick Neal M.D. MEDICAL IMAGING REPORT This report is preliminary unless electronic signature is present EXAM Chest x-ray, 06/26/2017 HISTORY 51-year-old female in the ED complaining of shortness of air and chest pain. She notes symptoms for 2 weeks. TECHNIQUE AP portable upright chest x-ray. FINDINGS Heart size and pulmonary vascularity are normal. The lungs are expanded and clear. Pulmonary hyperinflation may indicate COPD. No visible pneumothorax or pleural effusion. IMPRESSION 1. No active disease. 2. Pulmonary hyperinflation suggesting potential COPD. Dictated by... Eloy Robert M.D. THIS IS AN ELECTRONICALLY VERIFIED REPORT Eloy Robert M.D. at 06/27/2017 9:57 PM Miguel TD: 06/27/2017 09:49 JOB #: [id number] MEDICAL IMAGING REPORT Page 1 of 1 COPY
[2017-06-26 21:13] LABS: BASOPHIL% 0.2 % (0-2.5); EOSINOPHIL# 0.2 X10e3 (0-0.7); EOSINOPHIL% 2.3 % (0.0-7.0); HEMATOCRIT 45.9 % (35.0-45.0); LYMPHOCYTE# 2.5 X10e3 (1.0-3.5); LYMPHOCYTE% 27.4 % (17.0-45.0); MEAN CELL VOLUME 82.6 FL (83-96); MEAN CORPUSCULAR HGB CONC 32.7 g/dL (30-36); MEAN PLATELET VOLUME 9.1 FL (6.5-11.5); MONOCYTE# 0.7 X10e3 (0-1.0); MONOCYTE% 7.6 % (3.0-12.0); NEUTROPHIL# 5.6 X10e3 (1.5-7.1); NEUTROPHIL% 62.5 % (40-75); PLATELET COUNT 241 X10e3 (140-420); RED BLOOD COUNT 5.56 X10e (3.90-5.30); RED CELL DISTRIBUTION WIDTH 16.6 % (11.0-15.5); WHITE BLOOD COUNT 8.9 X10e3 (4.0-10.5)
[2017-06-26 21:15] LABS: DIFF IND NO
[2017-06-26 21:20] LABS: URINE SOURCE CLEAN CATCH
[2017-06-26 21:36] LABS: URINE APPEARANCE CLOUDY; URINE BILIRUBIN NEG (NEG); URINE BLOOD NEG (NEG); URINE COLOR DK YELLOW; URINE GLUCOSE NEG (NEG); URINE KETONE TRACE (NEG); URINE LEUKOCYTE ESTERASE NEG (NEG); URINE NITRATE NEG (NEG); URINE PROTEIN NEG (NEG); URINE SPECIFIC GRAVITY 1.023 (1.003-1.035)
[2017-06-26 21:41] LABS: ALBUMIN SERUM 3.8 g/dL (3.5-5.0); BILIRUBIN, DIRECT 0.1 mg/dL (0.0-0.2); BILIRUBIN,INDIRECT 0.2 mg/dL (0.0-0.9); BILIRUBIN,TOTAL 0.3 mg/dL (0.2-2.0); BUN/CREATININE RATIO 12.5; CALCIUM SERUM 9.1 mg/dL (8.4-10.2); CREATININE SERUM 0.8 mg/dL (0.6-1.4); GLOM FILT RATE Estimated 85.4 mL/min (>60); POTASSIUM 3.7 mmol/L (3.5-5.1)
[2017-06-26 21:56] LABS: CULTURE INDICATED? NO
[2017-06-26 23:11] LABS: POC - CKMB <1.0 ng/mL (0.0-7.9); POC - TROPONIN <0.05 ng/mL (<=0.05)
[2017-06-27 01:21] LABS: POC - CKMB <1.0 ng/mL (0.0-7.9); POC - TROPONIN <0.05 ng/mL (<=0.05)
[2017-06-27] MEDS ORDERED: ZYRTEC10 M1 PO (01:44)
[2017-06-27] MEDS ORDERED: SINGULAIR PO (01:44)
[2017-06-27] MEDS ORDERED: NORVASC10 MG PO (01:44)
[2017-06-27] MEDS ORDERED: OMEPRAZOLE40 M1 PO (01:45)
[2017-06-27] MEDS ORDERED: LORCET 5-325 M1 EACH PO (01:46)
[2017-06-27] MEDS ORDERED: ALBUTEROL17 GM INH (02:45)
[2017-06-27 07:42] LABS: CK TOTAL 58 IU/L (26-140)
[2017-06-27 08:08] LABS: ALBUMIN SERUM 3.3 g/dL (3.5-5.0); BILIRUBIN,TOTAL 0.4 mg/dL (0.2-2.0); BUN/CREATININE RATIO 11.25; CALCIUM SERUM 8.7 mg/dL (8.4-10.2); CREATININE SERUM 0.8 mg/dL (0.6-1.4); GLOM FILT RATE Estimated 85.4 mL/min (>60); POTASSIUM 3.4 mmol/L (3.5-5.1)
[2017-06-27 13:48] LABS: CHOLESTEROL 222 mg/dL (0-200); HDL CHOLESTEROL 49 mg/dL (35-95); LDL/HDL RATIO 3 RATIO (0-4); TRIGLYCERIDES 145 mg/dL (10-160)
[2017-06-27 14:03] LABS: LDL CHOLESTEROL 144 mg/dL (-130)
[2017-06-28 06:53] LABS: CALCIUM SERUM 9.5 mg/dL (8.4-10.2); CREATININE SERUM 0.8 mg/dL (0.6-1.4); GLOM FILT RATE Estimated 85.4 mL/min (>60); POTASSIUM 3.9 mmol/L (3.5-5.1)
== END 2017-06-29 16:27 | disposition home or self-care (01) ==
LOC: CED 18:48 → C5B 06-27 01:48 → CEDOF 06-27 01:48 → CED 06-27 01:55 → CEDOF 06-27 03:40 → C5B 06-27 03:40
PROVIDERS: Emergency Medicine; Internal Medicine; Physician Assistant Medical
DX: K29.70 Gastritis, unspecified, without bleeding (principal); K29.80 Duodenitis without bleeding; K44.9 Diaphragmatic hernia without obstruction or gangrene; K22.2 Esophageal obstruction; K21.9 Gastro-esophageal reflux disease without esophagitis; I10 Essential (primary) hypertension; J44.9 Chronic obstructive pulmonary disease, unspecified; F17.210 Nicotine dependence, cigarettes, uncomplicated; Z88.0 Allergy status to penicillin; Z88.8 Allergy status to other drugs, medicaments and biological substances
CPT/HCPCS: 36415; 71010; 78452; 80048; 80053; 80061; 80076; 81003; 82550; 82553; 83690; 84443; 84484; 85025; 85379; 87077; 90732; 93005; 93017; 96361; 96372; 96374; 99285; A9500; C9113; G0009; G0378; J1650; J3480; J7060